=== PATIENT | female | born 1995 | race African-American/Black ===

== ENCOUNTER 2016-11-01 15:14 | Emergency (ER) | payer BC, MEDICAID ==
[~2016-11-01] VITALS: Ht 154.9 cm; Wt 77.3 kg
[2016-11-01 15:18] VITALS: BP 129/82; TEMP 98.8
[2016-11-01] MEDS ORDERED: PRENATAL PO (15:20)
[2016-11-01] MEDS ORDERED: ANUSOL-HC SUPPO25 MG RC (16:40)
[2016-11-01 17:20] VITALS: PULSE 88
== END 2016-11-01 17:20 | disposition home or self-care (01) ==
LOC: COL.ER 15:14
DX: K64.4 Residual hemorrhoidal skin tags (principal)

== ENCOUNTER 2016-11-03 19:07 | Emergency (ER) | payer BC, MEDICAID ==
[~2016-11-03] VITALS: Ht 154.9 cm; Wt 77.3 kg
[~2016-11-03 19:07] MED LIST: ANUSOL-HC SUPPO25 MG RC; PRENATAL PO
[2016-11-03 19:21] VITALS: TEMP 98.2
[2016-11-03] MEDS ORDERED: PERCOCET 325 MG1 TA2 PO (21:03)
[2016-11-03 21:25] VITALS: BP 140/80; PULSE 80
== END 2016-11-03 21:27 | disposition home or self-care (01) ==
LOC: COL.ER 19:07
DX: O22.42 Hemorrhoids in pregnancy, second trimester (principal); Z3A.24 24 weeks gestation of pregnancy
CPT/HCPCS: J1170; J2550

== ENCOUNTER 2016-12-04 23:13 | Outpatient (CLI) | payer BC, MEDICAID ==
[~2016-12-04] VITALS: Ht 154.9 cm; Wt 80.0 kg
[~2016-12-04 23:13] MED LIST changes: +PERCOCET 325 MG1 TA2 PO
[2016-12-04 23:32] VITALS: BP 114/64; PULSE 83; TEMP 98.2
== END 2016-12-05 01:10 | disposition home or self-care (01) ==
LOC: LDRO 23:13
DX: O60.03 Preterm labor without delivery, third trimester (principal); Z3A.29 29 weeks gestation of pregnancy; Z87.891 Personal history of nicotine dependence

== ENCOUNTER 2016-12-25 13:54 | Outpatient (CLI) | payer BC, MEDICAID ==
[~2016-12-25] VITALS: Ht 154.9 cm; Wt 82.3 kg
[2016-12-25 14:11] VITALS: BP 131/70; PULSE 96; TEMP 98.1
[2016-12-25 14:30] VITALS: BP 131/70; PULSE 96; TEMP 98.1
[2016-12-25 15:26] LABS: PH 7 (5-8); SQUAMOUS EPITHELIAL 0-2 /hpf; URINE APPEARANCE Clear; URINE BACTERIA Rare /hpf; URINE BILIRUBIN Negative (NEGATIVE); URINE BLOOD Negative (NEGATIVE); URINE COLOR Straw; URINE GLUCOSE Negative (NEGATIVE); URINE KETONE Negative (NEGATIVE); URINE RBC None Seen /hpf; URINE UROBILINOGEN Negative (NEGATIVE); URINE WBC 0-2 /hpf
== END 2016-12-25 15:50 | disposition home or self-care (01) ==
LOC: LDRO 13:54
PROVIDERS: Obstetrics & Gynecology
DX: O47.03 False labor before 37 completed weeks of gestation, third trimester (principal); O09.213 Supervision of pregnancy with history of pre-term labor, third trimester; Z3A.32 32 weeks gestation of pregnancy

== ENCOUNTER 2017-02-08 14:31 | Outpatient (CLI) | payer BC, MEDICAID ==
[~2017-02-08] VITALS: Ht 154.9 cm; Wt 86.8 kg
[2017-02-08 14:43] VITALS: BP 127/75; PULSE 102; TEMP 99
[2017-02-08 16:11] VITALS: BP 121/73; PULSE 93; TEMP 98.7
== END 2017-02-08 16:20 | disposition home or self-care (01) ==
LOC: LDRO 14:31
DX: O42.92 Full-term premature rupture of membranes, unspecified as to length of time between rupture and onset of labor (principal); Z3A.38 38 weeks gestation of pregnancy

== ENCOUNTER 2017-02-09 10:36 | Outpatient (CLI) | payer BC, MEDICAID ==
[2017-02-09 10:44] VITALS: BP 128/82; PULSE 100; TEMP 98.1
[2017-02-09 10:51] VITALS: BP 128/82; PULSE 100; TEMP 98.2
[2017-02-09 11:57] VITALS: BP 120/66; PULSE 72
== END 2017-02-09 11:45 | disposition home or self-care (01) ==
LOC: LDRO 10:36
DX: O42.92 Full-term premature rupture of membranes, unspecified as to length of time between rupture and onset of labor (principal); Z3A.38 38 weeks gestation of pregnancy

== ENCOUNTER 2017-02-13 19:30 | Inpatient (IN) | payer BC, MEDICAID ==
[2017-02-13] VITALS (14 sets, daily range): BP systolic 113–154; BP diastolic 63–104; PULSE 76–111; TEMP 98.2–98.8
[~2017-02-13] VITALS: Ht 157.5 cm; Wt 90.5 kg
[2017-02-13 20:29] LABS: BASO % 0.1 % (0.0-2.0); EOS # 0.1 (0.0-0.7); EOS % 0.5 % (0-4.0); GRAN # 9.1 (1.4-6.5); GRAN % 61.8 % (42.2-75.2); LYMPH # 3.9 (1.2-3.4); LYMPH % 26.6 % (20.0-51.0); MEAN CELL VOLUME 89 fl (80.0-100.0); MEAN CORPUSCULAR HEMOGLOBIN 29 pg (27.0-31.0); MEAN CORPUSCULAR HGB CONC 33 g/dl (33.0-37.0); MEAN PLATELET VOLUME 9.5 fl (7.4-10.4); MONO # 1.6 (0.1-0.6); MONO % 10.6 % (1.7-9.3); PLATELET COUNT 255 K/mm3 (130-400); RED BLOOD COUNT 4.08 M/mm3 (4.10-5.30); REDCELL DISTRIBUTION WIDTH-CV 13.7 % (11.5-14.5); WHITE BLOOD COUNT 14.6 K/mm3 (4.8-10.8)
[2017-02-13 20:35] LABS: HEMATOCRIT 36.3 % (37.0-47.0)
[2017-02-13] MEDS ORDERED: PERCOCET 325 MG1 TA2 PO (20:51)
[2017-02-13] MEDS ORDERED: MOTRIN 800800 MG/TAB PO (20:51)
[2017-02-14 00:45] VITALS: BP 128/69; PULSE 89
[2017-02-14 04:00] VITALS: BP 118/56; PULSE 92; TEMP 98.2
[2017-02-14 07:00] VITALS: BP 146/88; PULSE 73; TEMP 98.1
[2017-02-14 19:30] VITALS: BP 139/75; PULSE 83; TEMP 98.4
[2017-02-15 07:00] VITALS: BP 126/78; PULSE 76; TEMP 98.1
[2017-02-15 15:52] VITALS: BP 124/68; PULSE 72; TEMP 98
== END 2017-02-15 16:13 | disposition home or self-care (01) | DRG 775 ==
LOC: LDRO 19:30 → LDR 19:40 → OB 23:00
PROVIDERS: Obstetrics & Gynecology
PROC: 10E0XZZ Delivery of Products of Conception, External Approach (ICD-10-PCS; principal; 2017-02-13)
PROC: 0UQMXZZ Repair Vulva, External Approach (ICD-10-PCS; 2017-02-13)
DX: O99.824 Streptococcus B carrier state complicating childbirth (principal); O71.82 Other specified trauma to perineum and vulva; O99.343 Other mental disorders complicating pregnancy, third trimester; F31.9 Bipolar disorder, unspecified; Z3A.39 39 weeks gestation of pregnancy; Z37.0 Single live birth
CPT/HCPCS: J2540; J2590; J7120

== ENCOUNTER 2017-06-16 11:00 | Day surgery (SDC) | payer BC, MEDICAID ==
[~2017-06-16] VITALS: Ht 154.9 cm; Wt 76.7 kg
[~2017-06-16 11:00] MED LIST changes: +MOTRIN 800800 MG/TAB PO
[2017-06-16] MEDS ORDERED: HUMIRA40 MG/0.1 SQ (11:22)
[2017-06-16] MEDS ORDERED: ZOFRAN 4MG T4 MG/TAB PO (11:22)
[2017-06-16 12:07] VITALS: BP 121/75; PULSE 68; TEMP 98
[2017-06-16] MEDS ORDERED: ZUPLENZ4 M1 PO (12:14)
[2017-06-16] MEDS ORDERED: ZOLOFT 25MG25 MG PO (12:15)
[2017-06-16 14:04] VITALS: BP 111/80; PULSE 58; TEMP 97.8
[2017-06-16 14:15] VITALS: BP 113/78; PULSE 62
[2017-06-16 14:30] VITALS: BP 118/58; PULSE 51
[2017-06-16 14:45] VITALS: BP 122/79; PULSE 61
== END 2017-06-16 15:02 | disposition home or self-care (01) ==
LOC: SDCO 11:00
DX: K50.10 Crohn's disease of large intestine without complications (principal); K64.0 First degree hemorrhoids; J45.909 Unspecified asthma, uncomplicated; K21.9 Gastro-esophageal reflux disease without esophagitis; D64.9 Anemia, unspecified; F17.210 Nicotine dependence, cigarettes, uncomplicated
CPT/HCPCS: OP; J7030

== ENCOUNTER 2017-10-16 04:00 | Inpatient (IN) | payer BC ==
[~2017-10-16] VITALS: Ht 154.9 cm; Wt 86.7 kg
[~2017-10-16 04:00] MED LIST changes: +HUMIRA40 MG/0.1 SQ; +ZOFRAN 4MG T4 MG/TAB PO; +ZOLOFT 25MG25 MG PO; +ZUPLENZ4 M1 PO
[2017-10-16 05:37] LABS: BASO % 0.3 % (0.0-2.0); EOS # 0.1 (0.0-0.7); GRAN # 7.8 (1.4-6.5); GRAN % 62.9 % (42.2-75.2); HEMATOCRIT 38.5 % (37.0-47.0); HEMOGLOBIN 12.7 g/dl (12.5-16.0); LYMPH # 3.5 (1.2-3.4); LYMPH % 28.4 % (20.0-51.0); MEAN CELL VOLUME 91 fl (80.0-100.0); MEAN CORPUSCULAR HEMOGLOBIN 30 pg (27.0-31.0); MEAN CORPUSCULAR HGB CONC 33 g/dl (33.0-37.0); MEAN PLATELET VOLUME 9.2 fl (7.4-10.4); MONO # 0.9 (0.1-0.6); MONO % 7.2 % (1.7-9.3); PLATELET COUNT 276 K/mm3 (130-400); RED BLOOD COUNT 4.22 M/mm3 (4.10-5.30); REDCELL DISTRIBUTION WIDTH-CV 12.7 % (11.5-14.5)
[2017-10-16 05:50] LABS: ALANINE AMINOTRANSFERASE 29 U/L (9-52); ALBUMIN 4.8 gm/dL (3.5-5.0); ALKALINE PHOSPHATASE 79 U/L (50-136); ANION GAP 13 mmol/L (7-16); AST,SGOT 18 U/L (15-37); BILIRUBIN,TOTAL 1.2 mg/dL (0.0-1.0); BLOOD UREA NITROGEN 11 mg/dL (7-17); CALCIUM 9.4 mg/dL (8.4-10.2); CARBON DIOXIDE 18 mmol/L (22-30); CHLORIDE 108 mmol/L (98-107); CREATININE, serum 0.68 mg/dL (0.52-1.25); GLUCOSE 105 mg/dL (74-106); LIPASE 72 U/L (23-300); POTASSIUM 3.7 mmol/L (3.4-5.0); SODIUM 139 mmol/L (137-145); TOTAL PROTEIN 7.9 gm/dL (6.4-8.2)
[2017-10-16 05:51] LABS: C-REACTIVE PROTEIN < 0.5 mg/dL (0.0-0.9)
[2017-10-16 07:15] LABS: INFLUENZA A NEGATIVE; INFLUENZA B NEGATIVE
[2017-10-16 07:29] LABS: GLUCOSE,CSF 54 mg/dL (40-70); TOTAL PROTEIN,CSF 143 mg/dL (15-45)
[2017-10-16 08:12] LABS: CSF APPEARANCE CLEAR; CSF COLOR COLORLESS; CSF RBC 3 /mm3 (0-0)
[2017-10-16 08:13] LABS: CSF APPEARANCE CLEAR; CSF COLOR COLORLESS; CSF MONONUCLEAR 100 % (70-100); CSF MONONUCLEAR 99 % (70-100); CSF POLYMORPHONUCLEAR 0 % (0-6); CSF POLYMORPHONUCLEAR 1 % (0-6); CSF RBC 4 /mm3 (0-0)
[2017-10-16 09:51] VITALS: BP 127/79; PULSE 63; TEMP 98.3
[2017-10-16 13:47] VITALS: BP 124/89; PULSE 84; TEMP 98.6
[2017-10-16 14:43] VITALS: BP 124/89; PULSE 84; TEMP 98.6
[2017-10-16 18:02] VITALS: BP 135/79; PULSE 79; TEMP 98.9
[2017-10-16 18:12] VITALS: BP 143/86; PULSE 102; TEMP 97.6
[2017-10-16 21:25] VITALS: BP 130/71; PULSE 94; TEMP 99.1
[2017-10-17 01:37] VITALS: BP 140/85; PULSE 86; TEMP 99
[2017-10-17 05:18] VITALS: BP 131/77; PULSE 70; TEMP 98.6
[2017-10-17 07:59] LABS: BASO % 0.1 % (0.0-2.0); EOS % 0.1 % (0-4.0); GRAN # 11.7 (1.4-6.5); LYMPH # 3.5 (1.2-3.4); LYMPH % 20.6 % (20.0-51.0); MEAN CELL VOLUME 89 fl (80.0-100.0); MEAN CORPUSCULAR HEMOGLOBIN 30 pg (27.0-31.0); MEAN CORPUSCULAR HGB CONC 33 g/dl (33.0-37.0); MEAN PLATELET VOLUME 9.4 fl (7.4-10.4); MONO # 1.5 (0.1-0.6); MONO % 8.7 % (1.7-9.3); PLATELET COUNT 311 K/mm3 (130-400); RED BLOOD COUNT 4.04 M/mm3 (4.10-5.30); REDCELL DISTRIBUTION WIDTH-CV 12.5 % (11.5-14.5)
[2017-10-17 08:11] LABS: CALCIUM 9.3 mg/dL (8.4-10.2); CREATININE, serum 0.64 mg/dL (0.52-1.25); POTASSIUM 3.6 mmol/L (3.4-5.0)
[2017-10-17 10:55] VITALS: BP 127/65; PULSE 78; TEMP 98.5
[2017-10-17 14:00] VITALS: BP 135/69; PULSE 75; TEMP 98.6
[2017-10-17 18:16] VITALS: BP 134/73; PULSE 74; TEMP 98.9
[2017-10-17 22:50] VITALS: BP 137/82; PULSE 93; TEMP 98.5
[2017-10-18 01:33] VITALS: BP 125/76; PULSE 58; TEMP 98.1
[2017-10-18 05:00] VITALS: BP 129/63; PULSE 80; TEMP 98.7
[2017-10-18 07:06] LABS: MEAN CELL VOLUME 89 fl (80.0-100.0); MEAN CORPUSCULAR HGB CONC 33 g/dl (33.0-37.0); MEAN PLATELET VOLUME 8.9 fl (7.4-10.4); PLATELET COUNT 252 K/mm3 (130-400); RED BLOOD COUNT 3.56 M/mm3 (4.10-5.30); REDCELL DISTRIBUTION WIDTH-CV 12.5 % (11.5-14.5)
[2017-10-18 07:15] LABS: HEMATOCRIT 31.8 % (37.0-47.0); HEMOGLOBIN 10.6 g/dl (12.5-16.0); MEAN CORPUSCULAR HEMOGLOBIN 30 pg (27.0-31.0)
[2017-10-18 07:24] LABS: ALBUMIN 3.5 gm/dL (3.5-5.0); BILIRUBIN,TOTAL 1.2 mg/dL (0.0-1.0); CALCIUM 8.4 mg/dL (8.4-10.2); CREATININE, serum 0.76 mg/dL (0.52-1.25); POTASSIUM 3.1 mmol/L (3.4-5.0); TOTAL PROTEIN 6.2 gm/dL (6.4-8.2)
[2017-10-18 07:38] LABS: BAND 6 % (0-10); LYMPHOCYTE 58 % (20.0-51.0); NEUTROPHILS 31 % (42.0-75.2)
[2017-10-18 07:39] LABS: PLATELET ESTIMATE NORMAL (NORMAL)
[2017-10-18 07:40] LABS: TOXIC GRANULATION PRESENT
[2017-10-18 10:24] VITALS: BP 127/75; PULSE 70; TEMP 98.5
[2017-10-18 14:27] VITALS: BP 132/66; PULSE 77; TEMP 98.8
[2017-10-18 17:14] VITALS: BP 136/87; PULSE 61; TEMP 98.4
[2017-10-18 21:56] VITALS: BP 131/73; PULSE 85; TEMP 99.3
[2017-10-19 00:33] VITALS: BP 135/73; PULSE 81; TEMP 98.2
[2017-10-19 06:11] VITALS: BP 120/48; PULSE 70; TEMP 98
[2017-10-19 07:17] LABS: MEAN CELL VOLUME 88 fl (80.0-100.0); MEAN CORPUSCULAR HGB CONC 34 g/dl (33.0-37.0); PLATELET COUNT 257 K/mm3 (130-400); RED BLOOD COUNT 3.81 M/mm3 (4.10-5.30); REDCELL DISTRIBUTION WIDTH-CV 12.3 % (11.5-14.5)
[2017-10-19 07:20] LABS: HEMATOCRIT 33.6 % (37.0-47.0); HEMOGLOBIN 11.4 g/dl (12.5-16.0); MEAN CORPUSCULAR HEMOGLOBIN 30 pg (27.0-31.0)
[2017-10-19 07:29] LABS: ALBUMIN 3.9 gm/dL (3.5-5.0); BILIRUBIN,TOTAL 1.6 mg/dL (0.0-1.0); CALCIUM 8.9 mg/dL (8.4-10.2); CREATININE, serum 0.75 mg/dL (0.52-1.25); POTASSIUM 3.2 mmol/L (3.4-5.0); TOTAL PROTEIN 6.8 gm/dL (6.4-8.2)
[2017-10-19 09:30] VITALS: BP 129/52; PULSE 79; TEMP 98.2
[2017-10-19 14:01] VITALS: BP 141/75; PULSE 76; TEMP 98.6
[2017-10-19] MEDS ORDERED: NS INT FLUSH 1010 ML IV (15:27)
[2017-10-19] MEDS ORDERED: HEPARIN LOCK FLU5 M1 IV (15:27)
[2017-10-19] MEDS ORDERED: ZOVIRAX INJ V1000 MG IV (15:27)
[2017-10-19 17:45] VITALS: BP 133/80; PULSE 92; TEMP 99
[2017-10-19 22:35] VITALS: BP 134/83; PULSE 87; TEMP 98.7
[2017-10-20 02:20] VITALS: BP 117/70; PULSE 76; TEMP 98.5
[2017-10-20 05:48] VITALS: BP 119/74; PULSE 79; TEMP 98.8
[2017-10-20 09:47] VITALS: BP 119/70; PULSE 97; TEMP 98.7
[2017-10-20] MEDS ORDERED: ZOFRAN ODT4 MG PO (13:18)
[2017-10-20] MEDS ORDERED: IBU600 MG PO (13:18)
[2017-10-20] MEDS ORDERED: NORCO 325 MG-51 TAB PO (13:19)
[2017-10-20 13:26] VITALS: BP 126/80; PULSE 91; TEMP 98.1
== END 2017-10-20 14:47 | disposition home health service (06) | DRG 75 ==
LOC: COL.ER 04:00 → SURG 09:42
PROVIDERS: Emergency Medicine; Internal Medicine; Physician Assistant
PROC: 009U3ZX Drainage of Spinal Canal, Percutaneous Approach, Diagnostic (ICD-10-PCS; principal; 2017-10-16)
PROC: 02HV33Z Insertion of Infusion Device into Superior Vena Cava, Percutaneous Approach (ICD-10-PCS; 2017-10-19)
DX: B00.3 Herpesviral meningitis (principal); K50.90 Crohn's disease, unspecified, without complications; F32.9 Major depressive disorder, single episode, unspecified; F41.9 Anxiety disorder, unspecified; L30.9 Dermatitis, unspecified; F17.210 Nicotine dependence, cigarettes, uncomplicated
CPT/HCPCS: 99222-AI; 99223-AI; 99231-AI; 99232-AI; 99233-AI; 99239; C1751; J0133; J0290; J0696; J1100; J1170; J1200; J1644; J1650; J1885; J2405; J2550; J3370; J7030; J7040; J7050

== ENCOUNTER 2017-11-13 10:39 | Outpatient (CLI) | payer BC ==
[~2017-11-13] VITALS: Ht 154.9 cm; Wt 86.0 kg
[~2017-11-13 10:39] MED LIST changes: +HEPARIN LOCK FLU5 M1 IV; +IBU600 MG PO; +NORCO 325 MG-51 TAB PO; +NS INT FLUSH 1010 ML IV; +ZOFRAN ODT4 MG PO; +ZOVIRAX INJ V1000 MG IV
[2017-11-13] MEDS ORDERED: IBU600 MG PO (11:05)
[2017-11-13] MEDS ORDERED: ZOFRAN 4MG T4 MG/TAB PO (11:06)
[2017-11-13 11:07] VITALS: BP 127/71; PULSE 66; TEMP 98.2
== END 2017-11-13 11:20 | disposition home or self-care (01) ==
LOC: EUO 10:39
DX: G03.9 Meningitis, unspecified (principal)

== ENCOUNTER 2018-01-31 00:26 | Emergency (ER) | payer BC ==
[~2018-01-31] VITALS: Ht 162.6 cm; Wt 81.4 kg
[2018-01-31 00:30] VITALS: TEMP 97.6
[2018-01-31 01:05] LABS: BASO % 0.1 % (0.0-2.0); EOS # 0.1 (0.0-0.7); EOS % 1.3 % (0-4.0); GRAN # 3.7 (1.4-6.5); GRAN % 47.1 % (42.2-75.2); HEMATOCRIT 37.6 % (37.0-47.0); HEMOGLOBIN 12.6 g/dl (12.5-16.0); LYMPH # 3.5 (1.2-3.4); MEAN CELL VOLUME 86 fl (80.0-100.0); MEAN CORPUSCULAR HEMOGLOBIN 29 pg (27.0-31.0); MEAN CORPUSCULAR HGB CONC 34 g/dl (33.0-37.0); MEAN PLATELET VOLUME 8.8 fl (7.4-10.4); MONO # 0.6 (0.1-0.6); MONO % 7.4 % (1.7-9.3); PLATELET COUNT 326 K/mm3 (130-400); RED BLOOD COUNT 4.36 M/mm3 (4.10-5.30)
[2018-01-31 01:16] LABS: ALANINE AMINOTRANSFERASE 23 U/L (9-52); ALBUMIN 4.2 gm/dL (3.5-5.0); ALKALINE PHOSPHATASE 75 U/L (50-136); ANION GAP 15 mmol/L (7-16); AST,SGOT 16 U/L (15-37); BLOOD UREA NITROGEN 10 mg/dL (7-17); CALCIUM 9.2 mg/dL (8.4-10.2); CARBON DIOXIDE 21 mmol/L (22-30); CHLORIDE 106 mmol/L (98-107); CREATININE, serum 0.59 mg/dL (0.52-1.25); GLUCOSE 125 mg/dL (74-106); LIPASE 185 U/L (23-300); POTASSIUM 3.5 mmol/L (3.4-5.0); SODIUM 142 mmol/L (137-145); TOTAL PROTEIN 7.9 gm/dL (6.4-8.2)
[2018-01-31 01:19] LABS: C-REACTIVE PROTEIN < 0.5 mg/dL (0.0-0.9)
[2018-01-31 01:25] LABS: ERYTHROCYTE SEDIMENTATION RATE 15 mm/hr (0-20)
[2018-01-31] MEDS ORDERED: ZOVIRAX800 MG PO (02:21)
[2018-01-31 04:55] VITALS: BP 127/74; PULSE 87
== END 2018-01-31 04:50 | disposition home or self-care (01) ==
LOC: COL.ER 00:26
PROVIDERS: Emergency Medicine
DX: R11.2 Nausea with vomiting, unspecified (principal); R19.7 Diarrhea, unspecified; K50.90 Crohn's disease, unspecified, without complications
CPT/HCPCS: J1170; J2405; J2550; J7030

== ENCOUNTER 2018-02-18 12:32 | Emergency (ER) | payer BC ==
[~2018-02-18] VITALS: Ht 154.9 cm; Wt 82.2 kg
[~2018-02-18 12:32] MED LIST changes: +ZOVIRAX800 MG PO
[2018-02-18 12:37] VITALS: TEMP 98.6
[2018-02-18 13:19] LABS: HEMOGLOBIN 12.5 g/dl (12.5-16.0); MEAN CELL VOLUME 85 fl (80.0-100.0); MEAN CORPUSCULAR HEMOGLOBIN 29 pg (27.0-31.0); MEAN CORPUSCULAR HGB CONC 34 g/dl (33.0-37.0); PLATELET COUNT 377 K/mm3 (130-400); RED BLOOD COUNT 4.32 M/mm3 (4.10-5.30); REDCELL DISTRIBUTION WIDTH-CV 12.6 % (11.5-14.5)
[2018-02-18 13:23] LABS: HEMATOCRIT 36.9 % (37.0-47.0)
[2018-02-18 13:27] LABS: ALANINE AMINOTRANSFERASE 23 U/L (9-52); ALBUMIN 4.3 gm/dL (3.5-5.0); ALKALINE PHOSPHATASE 82 U/L (50-136); ANION GAP 15 mmol/L (7-16); AST,SGOT 20 U/L (15-37); BILIRUBIN,TOTAL 1.5 mg/dL (0.0-1.0); BLOOD UREA NITROGEN 13 mg/dL (7-17); CALCIUM 9.1 mg/dL (8.4-10.2); CARBON DIOXIDE 22 mmol/L (22-30); CHLORIDE 106 mmol/L (98-107); CREATININE, serum 0.73 mg/dL (0.52-1.25); GLUCOSE 105 mg/dL (74-106); POTASSIUM 3.1 mmol/L (3.4-5.0); SODIUM 143 mmol/L (137-145)
[2018-02-18 13:44] LABS: C-REACTIVE PROTEIN < 0.5 mg/dL (0.0-0.9)
[2018-02-18 14:05] LABS: BAND 2 % (0-10); LYMPHOCYTE 35 % (20.0-51.0); NEUTROPHILS 63 % (42.0-75.2); OVALOCYTES 1+; PLATELET ESTIMATE INCREASED (NORMAL)
[2018-02-18 15:00] LABS: GLUCOSE,CSF 59 mg/dL (40-70); TOTAL PROTEIN,CSF 43 mg/dL (15-45)
[2018-02-18 17:10] LABS: CSF APPEARANCE HAZY; CSF COLOR PINK; CSF MONONUCLEAR 40 % (70-100); CSF POLYMORPHONUCLEAR 60 % (0-6); CSF RBC 962 /mm3 (0-0)
[2018-02-18 17:12] LABS: CSF APPEARANCE CLEAR; CSF COLOR COLORLESS; CSF MONONUCLEAR 90 % (70-100); CSF POLYMORPHONUCLEAR 10 % (0-6); CSF RBC 143 /mm3 (0-0)
[2018-02-18] MEDS ORDERED: NORCO 325 MG-51 TAB PO (17:32)
[2018-02-18 17:46] VITALS: BP 123/86; PULSE 81
== END 2018-02-18 17:49 | disposition home or self-care (01) ==
LOC: COL.ER 12:32
PROVIDERS: Emergency Medicine
DX: R51 Headache (principal); K50.90 Crohn's disease, unspecified, without complications
CPT/HCPCS: J0133; J0780; J1200; J1885; J7030; J7050

== ENCOUNTER 2018-03-06 10:53 | Emergency (ER) | payer BC ==
[~2018-03-06] VITALS: Ht 157.5 cm; Wt 80.9 kg
[2018-03-06 10:58] VITALS: TEMP 98.4
[2018-03-06 11:33] LABS: BASO # 0.1 (0.0-0.2); BASO % 0.2 % (0.0-2.0); GRAN # 19.8 (1.4-6.5); GRAN % 83.6 % (42.2-75.2); HEMATOCRIT 37.7 % (37.0-47.0); HEMOGLOBIN 12.9 g/dl (12.5-16.0); LYMPH # 2.8 (1.2-3.4); LYMPH % 11.7 % (20.0-51.0); MEAN CELL VOLUME 86 fl (80.0-100.0); MEAN CORPUSCULAR HEMOGLOBIN 30 pg (27.0-31.0); MEAN CORPUSCULAR HGB CONC 34 g/dl (33.0-37.0); MEAN PLATELET VOLUME 8.9 fl (7.4-10.4); MONO # 0.8 (0.1-0.6); MONO % 3.5 % (1.7-9.3); PLATELET COUNT 427 K/mm3 (130-400); RED BLOOD COUNT 4.38 M/mm3 (4.10-5.30); REDCELL DISTRIBUTION WIDTH-CV 12.9 % (11.5-14.5)
[2018-03-06 11:43] LABS: ALBUMIN 4.3 gm/dL (3.5-5.0); C-REACTIVE PROTEIN 0.8 mg/dL (0.0-0.9); CALCIUM 9.7 mg/dL (8.4-10.2); CREATININE, serum 0.59 mg/dL (0.52-1.25); POTASSIUM 3.8 mmol/L (3.4-5.0); TOTAL PROTEIN 8.4 gm/dL (6.4-8.2)
[2018-03-06 11:47] LABS: COLLECTION METHOD CLEAN CATCH
[2018-03-06 12:05] LABS: MUCOUS Present /lpf; PH 6 (5-8); URINE APPEARANCE Hazy; URINE BACTERIA Rare /hpf; URINE BILIRUBIN Negative (NEGATIVE); URINE BLOOD Negative (NEGATIVE); URINE COLOR Yellow; URINE GLUCOSE Negative (NEGATIVE); URINE KETONE Negative (NEGATIVE); URINE LEUKOCYTE ESTERASE Negative (NEGATIVE); URINE NITRATE Negative (NEGATIVE); URINE PROTEIN(semi-quant) 1+ (NEGATIVE); URINE UROBILINOGEN Negative (NEGATIVE)
[2018-03-06] MEDS ORDERED: ZOFRAN 4MG T4 MG/TAB PO (13:48)
[2018-03-06 14:17] VITALS: BP 109/69; PULSE 86
[2018-03-06] MEDS ORDERED: NEXIUM 40MG40 MG PO (14:42)
[2018-03-06] MEDS ORDERED: REGLAN 10MG10 MG/TAB PO (14:43)
== END 2018-03-06 14:58 | disposition home or self-care (01) ==
LOC: COL.ER 10:53
PROVIDERS: Emergency Medicine
DX: R10.11 Right upper quadrant pain (principal); K50.90 Crohn's disease, unspecified, without complications
CPT/HCPCS: J0780; J1170; J1885; J7030; Q9967

== ENCOUNTER 2018-07-09 17:00 | Emergency (ER) | payer BC ==
[~2018-07-09] VITALS: Ht 160 cm; Wt 91.0 kg
[~2018-07-09 17:00] MED LIST changes: +NEXIUM 40MG40 MG PO; +REGLAN 10MG10 MG/TAB PO
[2018-07-09 17:22] VITALS: BP 135/95; TEMP 98.2
[2018-07-09] MEDS ORDERED: ENTYVIO (18:06)
[2018-07-09] MEDS ORDERED: HUMULIN R 10100 U/ML SQ (18:11)
[2018-07-09] MEDS ORDERED: K-TAB10 (18:11)
[2018-07-09 19:00] VITALS: PULSE 95
== END 2018-07-09 19:00 | disposition home or self-care (01) ==
LOC: COL.ER 17:00
DX: S61.210A Laceration without foreign body of right index finger without damage to nail, initial encounter (principal); W26.8XXA Contact with other sharp object(s), not elsewhere classified, initial encounter

== ENCOUNTER 2018-08-20 15:07 | Emergency (ER) | payer BC ==
[~2018-08-20] VITALS: Ht 160 cm; Wt 98.6 kg
[~2018-08-20 15:07] MED LIST changes: +ENTYVIO; +HUMULIN R 10100 U/ML SQ; +K-TAB10
[2018-08-20 15:11] VITALS: TEMP 99.4
[2018-08-20] MEDS ORDERED: ATARAX 25MG25 MG/TAB PO (15:37)
[2018-08-20 16:11] LABS: BASO # 0.1 (0.0-0.2); BASO % 0.3 % (0.0-2.0); EOS % 0.1 % (0-4.0); GRAN # 13.9 (1.4-6.5); GRAN % 80.2 % (42.2-75.2); HEMATOCRIT 38.8 % (37.0-47.0); HEMOGLOBIN 12.7 g/dl (12.5-16.0); LYMPH # 2.2 (1.2-3.4); LYMPH % 12.6 % (20.0-51.0); MEAN CELL VOLUME 86 fl (80.0-100.0); MEAN CORPUSCULAR HEMOGLOBIN 28 pg (27.0-31.0); MEAN CORPUSCULAR HGB CONC 33 g/dl (33.0-37.0); MEAN PLATELET VOLUME 8.9 fl (7.4-10.4); PLATELET COUNT 345 K/mm3 (130-400); RED BLOOD COUNT 4.49 M/mm3 (4.10-5.30); REDCELL DISTRIBUTION WIDTH-CV 13.3 % (11.5-14.5)
[2018-08-20 16:16] LABS: ALANINE AMINOTRANSFERASE 34 U/L (9-52); ALBUMIN 4.5 gm/dL (3.5-5.0); ALKALINE PHOSPHATASE 65 U/L (50-136); ANION GAP 8 mmol/L (7-16); AST,SGOT 23 U/L (15-37); BILIRUBIN,TOTAL 0.9 mg/dL (0.0-1.0); BLOOD UREA NITROGEN 11 mg/dL (7-17); CALCIUM 9.6 mg/dL (8.4-10.2); CARBON DIOXIDE 24 mmol/L (22-30); CHLORIDE 106 mmol/L (98-107); CREATININE, serum 0.61 mg/dL (0.52-1.25); GLUCOSE 119 mg/dL (74-106); POTASSIUM 4.4 mmol/L (3.4-5.0); SODIUM 139 mmol/L (137-145); TOTAL PROTEIN 7.5 gm/dL (6.4-8.2)
[2018-08-20 16:39] LABS: TROPONIN-I < 0.012 ng/mL (0.000-0.034)
[2018-08-20 18:16] LABS: TSH w REFLEX 0.81 uIU/mL (0.465-4.680)
[2018-08-20] MEDS ORDERED: DOXYCYCLINE 10100 MG PO (18:47)
[2018-08-20 18:53] VITALS: BP 115/86; PULSE 85
== END 2018-08-20 18:57 | disposition home or self-care (01) ==
LOC: COL.ER 15:07
PROVIDERS: Physician Assistant
DX: J40 Bronchitis, not specified as acute or chronic (principal); R09.1 Pleurisy; I49.3 Ventricular premature depolarization; T45.1X5D Adverse effect of antineoplastic and immunosuppressive drugs, subsequent encounter; K50.90 Crohn's disease, unspecified, without complications; T38.0X5D Adverse effect of glucocorticoids and synthetic analogues, subsequent encounter; E09.9 Drug or chemical induced diabetes mellitus without complications; I48.91 Unspecified atrial fibrillation; F41.9 Anxiety disorder, unspecified; Z79.4 Long term (current) use of insulin; Z79.52 Long term (current) use of systemic steroids
CPT/HCPCS: J2060; J2405; J2550; Q9967

== ENCOUNTER → 2018-09-28 | Outpatient (CLI) | payer BC, OTHER ==
[~2018-09-28] MED LIST changes: +ATARAX 25MG25 MG/TAB PO; +DOXYCYCLINE 10100 MG PO
== END ==
LOC: COL.RAD 13:57
DX: M50.31 Other cervical disc degeneration, high cervical region (principal); M50.21 Other cervical disc displacement, high cervical region; R93.7 Abnormal findings on diagnostic imaging of other parts of musculoskeletal system

== ENCOUNTER 2018-10-21 10:44 | Emergency (ER) | payer OTHER ==
[~2018-10-21] VITALS: Ht 157.5 cm; Wt 99.1 kg
[~2018-10-21 10:44] MED LIST changes: -K-TAB10; +K-TAB10 PO
[2018-10-21 11:04] VITALS: TEMP 98.7
[2018-10-21] MEDS ORDERED: PROTONIX 40MG T40 MG PO (11:47)
[2018-10-21] MEDS ORDERED: FLEXERIL 1010 MG/TAB PO (11:49)
[2018-10-21] MEDS ORDERED: AZULFIDINE ENT500 MG PO (11:50)
[2018-10-21] MEDS ORDERED: TOPROL XL 25MG25 MG PO (11:50)
[2018-10-21] MEDS ORDERED: ZOVIRAX 200MG200 MG PO (11:51)
[2018-10-21] MEDS ORDERED: PHENERGAN 25 TA25 MG PO (11:51)
[2018-10-21] MEDS ORDERED: CALCIUM CARBON650 M2 PO (11:52)
[2018-10-21] MEDS ORDERED: DEPO-PROVER150 MG/M1 IM (11:52)
[2018-10-21] MEDS ORDERED: [UNRECOGNIZED DRUG - OTHER] PO (11:53)
[2018-10-21] MEDS ORDERED: VITAMIN D31000 I1 PO (11:53)
[2018-10-21 13:02] LABS: ALBUMIN 4.3 gm/dL (3.5-5.0); BILIRUBIN,TOTAL 0.9 mg/dL (0.0-1.0); C-REACTIVE PROTEIN 0.9 mg/dL (0.0-0.9); CREATININE, serum 0.6 mg/dL (0.52-1.25); POTASSIUM 3.5 mmol/L (3.4-5.0); TOTAL PROTEIN 7.2 gm/dL (6.4-8.2)
[2018-10-21 13:04] LABS: BASO % 0.2 % (0.0-2.0); EOS # 0.1 (0.0-0.7); EOS % 0.8 % (0-4.0); GRAN # 11.2 (1.4-6.5); GRAN % 64.9 % (42.2-75.2); HEMATOCRIT 38.1 % (37.0-47.0); HEMOGLOBIN 12.7 g/dl (12.5-16.0); LYMPH # 4.5 (1.2-3.4); LYMPH % 26.1 % (20.0-51.0); MEAN CELL VOLUME 86 fl (80.0-100.0); MEAN CORPUSCULAR HEMOGLOBIN 29 pg (27.0-31.0); MEAN CORPUSCULAR HGB CONC 33 g/dl (33.0-37.0); MEAN PLATELET VOLUME 9.7 fl (7.4-10.4); MONO # 1.3 (0.1-0.6); MONO % 7.4 % (1.7-9.3); PLATELET COUNT 277 K/mm3 (130-400); RED BLOOD COUNT 4.43 M/mm3 (4.10-5.30); REDCELL DISTRIBUTION WIDTH-CV 13.2 % (11.5-14.5)
[2018-10-21] MEDS ORDERED: ZOFRAN ODT4 MG PO (13:29)
[2018-10-21 13:49] LABS: COLLECTION METHOD CLEAN CATCH
[2018-10-21 13:53] LABS: MUCOUS Present /lpf; PH 5 (5-8); SQUAMOUS EPITHELIAL 0-2 /hpf; URINE APPEARANCE Hazy; URINE BACTERIA None Seen /hpf; URINE BILIRUBIN Negative (NEGATIVE); URINE BLOOD Negative (NEGATIVE); URINE COLOR Yellow; URINE GLUCOSE Negative (NEGATIVE); URINE KETONE Negative (NEGATIVE); URINE LEUKOCYTE ESTERASE Negative (NEGATIVE); URINE NITRATE Negative (NEGATIVE); URINE PROTEIN(semi-quant) Negative (NEGATIVE); URINE RBC None Seen /hpf; URINE UROBILINOGEN Negative (NEGATIVE)
[2018-10-21] MEDS ORDERED: PREDNISONE10 MG PO (13:59)
[2018-10-21 14:43] VITALS: BP 132/73; PULSE 97
== END 2018-10-21 14:44 | disposition home or self-care (01) ==
LOC: COL.ER 10:44
PROVIDERS: Physician Assistant
DX: R19.7 Diarrhea, unspecified (principal); R11.10 Vomiting, unspecified; E11.9 Type 2 diabetes mellitus without complications; F41.9 Anxiety disorder, unspecified; K50.90 Crohn's disease, unspecified, without complications; Z87.891 Personal history of nicotine dependence
CPT/HCPCS: J2405; J7030